=== PATIENT | female | born 1940 | race African-American/Black ===

== ENCOUNTER 2020-02-05 12:23 | Inpatient (IN) ==
[2020-02-05] MEDS ORDERED: NS 1,000 ML IV PRN (12:45)
[2020-02-05 13:08] LABS: BASO# 0.01 X1000 (0.0-0.2); BASO% 0.3 % (0.0-0.8); EOS# 0.09 X1000 (0.0-0.7); EOS% 2.5 % (0.0-10.0); HEMOGLOBIN 11.9 g/dL (12.0-16.0); LYMPH# 1.54 X1000 (1.2-3.4); MCH 30.4 PG (27-31); MCHC 31.3 g/dL (33-37); MCV 96.9 FL (81-99); MONO# 0.32 X1000 (0.11-0.59); MONO% 8.7 % (1.7-9.3); MPV 10.3 FL (7.4-10.4); NEUT# 1.71 X1000 (1.4-6.5); NEUT% 46.5 % (42.2-75.2); PLT 228 X1000 (130-400); RBC 3.92 XMIL (4.2-5.4); RDW 13.9 % (11.5-14.5); WBC 3.67 X1000 (4.8-10.8)
--- NOTE | 2020-02-05 13:09 | EKG Report ---
Test Performed on : 02/05/2020 12:34:25 PM Test Reason : stroke like symptoms Blood Pressure : / mmHG Vent. Rate : 072 BPM Atrial Rate : 072 BPM P-R Int : 198 ms QRS Dur : 086 ms QT Int : 406 ms P-R-T Axes : 049 -35 -01 degrees QTc Int : 444 ms Normal sinus rhythm. Left axis deviation Nonspecific T wave abnormality Abnormal ECG When compared with ECG of 07-JAN-2020 15:58, (Unconfirmed) Sinus rhythm. has replaced Atrial fibrillation. Nonspecific T wave abnormality, improved in Lateral leads Unconfirmed Result
[2020-02-05 13:24] LABS: INR 1.01; PROTIME 13.8 Seconds (11.0-16.0)
[2020-02-05 13:25] LABS: PTT 29.6 Seconds (22.3-41.8)
--- NOTE | 2020-02-05 13:36 | Diag Imaging Result Doc PS360 ---
EXAM: CT HEAD W/O CONTRAST INDICATION: CVA TECHNIQUE: This exam was performed using automated exposure control, adjustment of mA or kV according to patient size, and/or use of iterative reconstruction technique. COMPARISON: 09/13/2013 FINDINGS: There is mild diffuse brain atrophy, stable. There is no definite acute infarct given the limited sensitivity of CT versus MRI. There is no discrete intracranial mass, mass effect, or intracranial hemorrhage. The surrounding soft tissues and bony structures are essentially unremarkable. IMPRESSION: No evidence of acute intracranial pathology by CT. Electronically signed by Bill Baez 02/05/2020 1:34 PM
--- NOTE | 2020-02-05 13:38 | Diag Imaging Result Doc PS360 ---
CHEST-PORTABLE - 02/05/2020 INDICATION: irregular heart beats COMPARISON: 01/07/2020 FINDINGS: Stable faint chronic scarring in the lung bases. Heart size is top normal. Pulmonary vascularity is normal. No infiltrates. No pneumothorax or pleural effusion. IMPRESSION: No acute disease or change from prior. Electronically signed by Damián Pacheco 02/05/2020 1:35 PM
[2020-02-05 14:04] LABS: AGAP 12; ALBUMIN 3.4 g/dL (3.5-5.0); ALKALINE PHOSPHATASE 73 U/L (32-104); BUN 8 mg/dL (8-22); CALCIUM 8.8 mg/dL (8.8-10.2); CHLORIDE 105 mmol/L (98-107); COSMO 282; CREATININE 0.6 mg/dL (0.5-0.9); ESTIMATED GFR > 60; GLUCOSE 104 mg/dL (70-104); GOT 20 U/L (10-30); GPT 14 U/L (10-36); POTASSIUM 4.2 mmol/L (3.5-5.1); SODIUM 142 mmol/L (136-145); TCO2 25 mmol/L (25-35); TOTAL PROTEIN 6.9 g/dL (6.3-8.3)
[2020-02-05 14:17] LABS: URINE SOURCE CLEAN CATCH
[2020-02-05 14:20] LABS: BILIRUBIN URINE NEGATIVE (NEGATIVE); BLOOD URINE NEGATIVE (NEGATIVE); COLOR STRAW; GLUCOSE URINE NEGATIVE (NEGATIVE); KETONE URINE NEGATIVE (NEGATIVE); LEUKOCYTES URINE NEGATIVE (NEGATIVE); NITRITE URINE NEGATIVE (NEGATIVE); PROTEIN URINE NEGATIVE (NEGATIVE); SP GRAVITY URINE 1.011; TURBIDITY URINE CLEAR (CLEAR); UROBILINOGEN URINE NORMAL (NORMAL)
[2020-02-05 14:21] LABS: UR EPITHELIAL CELLS <10 /HPF (<10); URINE BACTERIA NEGATIVE /HPF; URINE RBC <10 /HPF (<10); URINE WBC <10 /HPF (<10)
[2020-02-05 14:37] LABS: UR AMPHETAMINES QUAL NONE DETECTED (NONE DETECT); UR BARBITUATES QUAL NONE DETECTED (NONE DETECT); UR BENZODIAZEPIN QUAL NONE DETECTED (NONE DETECT); UR CANNABINOIDS QUAL NONE DETECTED (NONE DETECT); UR COCAINE QUAL NONE DETECTED (NONE DETECT); UR METHADONE QUAL NONE DETECTED (NONE DETECT); UR METHAMPHETAMINE QUAL NONE DETECTED (NONE DETECT); UR OPIATES QUAL NONE DETECTED (NONE DETECT); UR OXYCODONE QUAL NONE DETECTED (NONE DETECT); UR PCP QUAL NONE DETECTED (NONE DETECT); UR PROPOXYPHENE QUAL NONE DETECTED (NONE DETECT); UR TCA QUAL NONE DETECTED (NONE DETECT)
--- NOTE | 2020-02-05 14:47 | PROVIDER DOCUMENTATION ---
This chart was entered by Cate Real Scribe, acting as scribe for Maira Barajas MD. HPI-Neurological Disorder - General Chief Complaint: Numbness Stated Complaint: LEFT ARM NUMBNESS Time Seen by Provider: 02/05/20 12:42 Source: patient Allergies/Adverse Reactions: Patient Allergies Allergy/AdvReac Type Severity Reaction Status Date / Time amoxicillin trihydrate * Allergy Mild SWELLING Verified 02/05/20 13:10 [From Amoxil] OF MOUTH iodine Allergy Mild RASH Verified 02/05/20 13:10 metronidazole [From Flagyl] Allergy Mild SWELLING Verified 02/05/20 13:10 Metronidazole HCl * Allergy Mild SWELLING Verified 02/05/20 13:10 [From Flagyl] Penicillins Allergy Mild RASH Verified 02/05/20 13:10 Sulfa (Sulfonamide Allergy Mild SWELLING Verified 02/05/20 13:10 Antibiotics) [Sulfa(Sulfonamide Antibiotics)] Home Medications: Home Medication List Medication Instructions Recorded Confirmed Last Taken Type Flecainide [Tambocor] 100 mg PO BID 08/16/12 02/05/20 09/24/19 History Gabapentin 100 mg PO BID 08/16/12 02/05/20 09/24/19 History Lovastatin 20 mg PO QHS 08/16/12 02/05/20 09/24/19 History Levothyroxine [Synthroid] 25 microgm PO DAILY 11/24/13 02/05/20 09/24/19 History Venlafaxine E.r. [Effexor Xr] 37.5 mg PO DAILY 06/23/16 02/05/20 09/24/19 History Diltiazem C.d. [Cardizem Cd] 120 mg PO BID #60 capsule 07/02/16 02/05/20 09/24/19 Rx Acetaminophen [Tylenol] 1 g PO Q8H PRN PRN #20 tab 09/25/19 02/05/20 Unknown Rx Apixaban [Eliquis] 5 mg PO DAILY 02/05/20 02/05/20 Unknown History Calcium Citrate/Vitamin D 1 ea PO DAILY 02/05/20 02/05/20 Unknown History [Citracal + D] - History of Present Illness-Neuro Nature of Presenting Problem: 79 yobf presents to the ed with c/o acute onset last night of LUE and LLE numbness and weakness. pt has no other sx. pt has no slurred speech, facial droop or unsteady gait. pt has hx of afib but denies CVA hx Onset/Duration: reports: last night Timing: reports: still present, intermittent Context: reports: paresthesia Approximate time patient was last seen normal?: 18:00 (last night) Character of Altered Mental Status: reports: N/A Any recent trauma/injury?: reports: none Character of Deficits: reports: new weakness, altered sensation. denies: vision problem/glaucoma, impaired speech, decreased ability to stand, decreased ability to walk New weakness or altered sensation location:: reports: LUE, LLE Cognitive Baseline: alert, oriented x3 Gait Baseline: walks without assistance Associated Symptoms: reports: paresthesia (numbness), weakness. denies: short of breath, fainting, confusion, chest pain, neck/back pain, slurred speech, vomiting, vision changes Similar Symptoms Previously?: No Recently seen or treated by another doctor?: No Review of Systems - Adult - REVIEW OF SYSTEMS - ADULT Constitutional: denies: fever Eyes: reports: no symptoms reported Ears, Nose, Mouth & Throat: reports: no symptoms reported Cardiovascular: denies: chest pain, orthopnea, palpitations Respiratory: denies: cough, shortness of breath, wheezing Gastrointestinal: denies: diarrhea, nausea, vomiting Genitourinary: reports: no symptoms reported Musculoskeletal: reports: other (minimal weakness LUE and LLE). denies: back pain, neck pain Integumentary: reports: no symptoms reported Neurological: reports: see HPI, numbness, paresthesia. denies: ataxia, dizziness/vertigo, headache/migraines, slurred speech, syncope Psychiatric: reports: no symptoms reported Endocrine: reports: no symptoms reported Hematologic/Lymphatic: reports: no symptoms reported Allergic/Immunologic: reports: no symptoms reported All Other Systems: Reviewed and Negative Past History - Adult - PAST MEDICAL HISTORY-ADULT Review of Records: reports: Old Records Reviewed, Nursing Assessment Review, Medications Reviewed, Social history reviewed & non-contributory. Major Childhood Illnesses: reports: denies history Cardiovascular: reports: cardiac disease, A-Fib, HTN Respiratory: reports: denies history Gastrointestinal: reports: cancer (colon), GERD Genitourinary: reports: denies history Musculoskeletal: reports: denies history Neurological: reports: denies history Endocrine/Immune: reports: thyroid disorder, Diabetes Diabetes Type: Type 2 Diabetes controlled by:: Diet Other Conditions: reports: denies history, other cancer Additional History: colon ca - PRIOR SURGERIES/PROCEDURES Surgical/Procedure History: reports: cholecystectomy, BTL, bowel surgery (colon) - IMMUNIZATION STATUS Childhood Immunizations: See Nurse Assessment Flu Vaccine: See Nurse Assessment - FAMILY HISTORY Family History: reviewed, not pertinent - SOCIAL HISTORY Smoking: denies Substance Use: denies Living Situation: family Physical Exam- Neurological - Physical Exam-Neuro Initial Vital Signs Reviewed: Yes General Appearance: appears well, alert, no apparent distress Eye Exam: bilateral eye: normal inspection, PERRL, EOMI HENMT: moist mucous membranes Head Injury: no evidence of injury Neck: non-tender, full range of motion, supple, normal inspection Respiratory: chest non-tender, lungs clear, normal breath sounds Cardiovascular: normal peripheral pulses, irregularly irregular Abdominal Exam: normal bowel sounds, non tender, soft Lymphatic: no adenopathy Extremity: normal range of motion, normal gait, normal inspection, normal capillary refill, other (LUE and LLE minimal weakness noted) operations planner Exam: normal hearing, normal speech, PERRL Coordination/Gait: normal finger to nose, normal gait Motor/Sensory: sensory deficit, weak motor strength LUE, weak motor strength LLE Integumentary: normal color, normal turgor, warm/dry Psych/Mental Status: normal mood/affect, normal thought content, normal thought process, oriented x 3 - Glascow Coma Scale Best Eye Response: (4) open spontaneously Best Verbal Response: (5) oriented Best Motor Response: (6) obeys commands Total Glascow Score: 15 Progress - PLAN OF CARE/RESULTS Progress/Plan/Lab Results: Vital Signs - 8 hr 02/05/20 12:26 02/05/20 14:39 02/05/20 15:44 Temperature 98 F Pulse Rate 78 59 L 61 Respiratory Rate 18 20 16 Blood Pressure 144/83 129/69 129/69 O2 Sat by Pulse Oximetry 96 98 99 Laboratory Results - last 24 hr 02/05/20 02/05/20 02/05/20 13:00 13:00 13:00 WBC 3.67 L RBC 3.92 L Hgb 11.9 L Hct 38.0 MCV 96.9 MCH 30.4 MCHC 31.3 L RDW Std Deviation 13.9 Plt Count 228 MPV 10.3 Immature Gran % (Auto) 0.0 Neut % (Auto) 46.5 Lymph % (Auto) 42.0 [place] % (Auto) 8.7 Eos % (Auto) 2.5 Baso % (Auto) 0.3 Immature Gran # (Auto) 0.00 Neut # (Auto) 1.71 Lymph # (Auto) 1.54 [place] # (Auto) 0.32 Eos # (Auto) 0.09 Baso # (Auto) 0.01 PT INR PTT (Actin FS) Sodium 142 Potassium 4.2 Chloride 105 Carbon Dioxide 25 Anion Gap 12 BUN 8 Creatinine 0.6 Estimated GFR/1.73 m2 > 60 BUN/Creatinine Ratio 13 Glucose 104 POC Glucose Calculated Osmolality 282 Calcium 8.8 Total Bilirubin 0.30 AST 20 ALT 14 Alkaline Phosphatase 73 Troponin T High Sens 11 Total Protein 6.9 Albumin 3.4 L Globulin 4.0 Albumin/Globulin Ratio 1.0 Urine Source Urine Color Urine Turbidity Urine pH Ur Specific [place] Urine Protein Ur Glucose (Stick) Ur Ketones (Stick) Urine Blood Urine Nitrite Urine Bilirubin Urobilinogen Dipstick Urine Leukocytes Urine WBC (Auto) Urine RBC (Auto) U Epithel Cells (Auto) Urine Bacteria (Auto) Urine Opiates Screen Ur Oxycodone Screen Urine Methadone Screen U Propoxyphene Qual Ur Barbituates Screen Ur Tricyclics Screen Ur Phencyclidine Scrn Ur Amphetamines Screen U Methamphetamines Scrn U Benzodiazepines Scrn Urine Cocaine Screen U Cannabinoids Screen 02/05/20 02/05/20 02/05/20 13:00 13:02 14:06 WBC RBC Hgb Hct MCV MCH MCHC RDW Std Deviation Plt Count MPV Immature Gran % (Auto) Neut % (Auto) Lymph % (Auto) [place] % (Auto) Eos % (Auto) Baso % (Auto) Immature Gran # (Auto) Neut # (Auto) Lymph # (Auto) [place] # (Auto) Eos # (Auto) Baso # (Auto) PT 13.8 INR 1.01 PTT (Actin FS) 29.6 Sodium Potassium Chloride Carbon Dioxide Anion Gap BUN Creatinine Estimated GFR/1.73 m2 BUN/Creatinine Ratio Glucose POC Glucose 115 H Calculated Osmolality Calcium Total Bilirubin AST ALT Alkaline Phosphatase Troponin T High Sens Total Protein Albumin Globulin Albumin/Globulin Ratio Urine Source Urine Color Urine Turbidity Urine pH Ur Specific [place] Urine Protein Ur Glucose (Stick) Ur Ketones (Stick) Urine Blood Urine Nitrite Urine Bilirubin Urobilinogen Dipstick Urine Leukocytes Urine WBC (Auto) Urine RBC (Auto) U Epithel Cells (Auto) Urine Bacteria (Auto) Urine Opiates Screen NONE DETECTED Ur Oxycodone Screen NONE DETECTED Urine Methadone Screen NONE DETECTED U Propoxyphene Qual NONE DETECTED Ur Barbituates Screen NONE DETECTED Ur Tricyclics Screen NONE DETECTED Ur Phencyclidine Scrn NONE DETECTED Ur Amphetamines Screen NONE DETECTED U Methamphetamines Scrn NONE DETECTED U Benzodiazepines Scrn NONE DETECTED Urine Cocaine Screen NONE DETECTED U Cannabinoids Screen NONE DETECTED 02/05/20 14:06 WBC RBC Hgb Hct MCV MCH MCHC RDW Std Deviation Plt Count MPV Immature Gran % (Auto) Neut % (Auto) Lymph % (Auto) [place] % (Auto) Eos % (Auto) Baso % (Auto) Immature Gran # (Auto) Neut # (Auto) Lymph # (Auto) [place] # (Auto) Eos # (Auto) Baso # (Auto) PT INR PTT (Actin FS) Sodium Potassium Chloride Carbon Dioxide Anion Gap BUN Creatinine Estimated GFR/1.73 m2 BUN/Creatinine Ratio Glucose POC Glucose Calculated Osmolality Calcium Total Bilirubin AST ALT Alkaline Phosphatase Troponin T High Sens Total Protein Albumin Globulin Albumin/Globulin Ratio Urine Source CLEAN CATCH Urine Color STRAW Urine Turbidity CLEAR Urine pH 7.0 Ur Specific [place] 1.011 Urine Protein NEGATIVE Ur Glucose (Stick) NEGATIVE Ur Ketones (Stick) NEGATIVE Urine Blood NEGATIVE Urine Nitrite NEGATIVE Urine Bilirubin NEGATIVE Urobilinogen Dipstick NORMAL Urine Leukocytes NEGATIVE Urine WBC (Auto) <10 Urine RBC (Auto) <10 U Epithel Cells (Auto) <10 Urine Bacteria (Auto) NEGATIVE Urine Opiates Screen Ur Oxycodone Screen Urine Methadone Screen U Propoxyphene Qual Ur Barbituates Screen Ur Tricyclics Screen Ur Phencyclidine Scrn Ur Amphetamines Screen U Methamphetamines Scrn U Benzodiazepines Scrn Urine Cocaine Screen U Cannabinoids Screen Orders Category Date Time Status Cardiac Monitoring DIRECTED Care 02/05/20 12:47 Active Finger Stick Blood Sugar (ED) DIRECTED Care 02/05/20 12:47 Active Misc. NRSG Communication Order DIRECTED Care 02/05/20 12:47 Active Saline Loc NOW Care 02/05/20 12:47 Active CHEST-PORTABLE [RAD] Stat Exams 02/05/20 13:[address] HEAD W/O CONTRAST [CT] Stat Exams 02/05/20 12:47 Completed MRA BRAIN W/O CONTRAST [MRI] Stat Exams 02/05/20 16:15 Ordered MRI BRAIN W/WO CONTRAST [MRI] Stat Exams 02/05/20 16:15 Ordered CBC WITH ELECTRONIC DIFF [HEME] Stat Lab 02/05/20 13:00 Completed COMPREHENSIVE METABOLIC PANEL [CHEM] Stat Lab 02/05/20 13:00 Completed PROTIME WITH INR [COAG] Stat Lab 02/05/20 13:00 Completed PTT [COAG] Stat Lab 02/05/20 13:00 Completed TROPONIN T HIGH SENSITIVITY Stat Lab 02/05/20 13:00 Completed URINALYSIS W/POSS RFLX CULT [URINALYSIS] Stat Lab 02/05/20 14:06 Completed URINE DRUG SCREEN PL Stat Lab 02/05/20 14:06 Completed 0.9% Sodium Chloride Inj [Ns] 1,000 ml Med 02/05/20 12:45 Active IV 250 mls/hr EKG [EKG] Stat Ther 02/05/20 12:47 Draft Echo Spec/Color Doppler Routine Ther 02/05/20 16:15 Ordered Transfer/Admit Order [TRANSFER] Routine Transfer 02/05/20 16:19 Ordered Result Diagrams: 02/05/20 13:00 02/05/20 13:00 - REASSESSMENT Reassessment #1 Time Reassessed: 14:09 Status: improving (pt is resting in bed) - EKG 1 Time of EKG reading by physician:: 12:34 EKG Read and Signed by:: Maira Barajas EKG Interpretation (*Must complete 3 of following elements*): Abnormal Rate: 72 Rhythm: nsr [place]: left (deviation) QRS: normal MI Interval: normal ST Wave: normal Comments: nonspecific T wave abnormality - XRAY 1 XRAY: Bilateral XRAY Study: Chest Impression: See EMR Report (IMPRESSION: No acute disease or change from prior. Electronically signed by Damián Pacheco 02/05/2020 1:35 PM) - CT/MRI 1 CT Study: Head Impression: See EMR Report (IMPRESSION: No evidence of acute intracranial pathology by CT. Electronically signed by Bill Baez 02/05/2020 1:34 PM) - CONSULTS/PCP/HOSPITALIST Notification #1 *Consult/PCP/Hospitalist*: hospitalist dr park Time Discussed: 14:49 Consult Disposition: Will see in ED, Admit Departure - Departure Date of Disposition Decision: 02/05/20 Time of Disposition Decision: 14:45 DIAGNOSIS: Left-sided weakness Disposition: ADMITTED INPATIENT 09 Certified Medical Emergency: Emergent Condition: Good Referrals and Follow-Ups: Freddy Ramirez MD [Primary Care Provider] - - Critical Care Note This patient required my direct & personal management of CC.: No Attestation - Physician/ CASTILLO Attestation Patient care was provided by Advanced Practice Provider:: No The physician spent face to face time with patient:: Yes Advanced Practice Provider documentation review:: Supervising physician onsite a nd consulted in the evaluation and care of this patient. The physician did have a face to face encounter with the patient. - NIH Stroke Scale NIH Type: Initial Evaluation Level of Consciousness: 0-Alert LOC Questions (ask month and age): 0-Answers Both Correctly LOC Commands (ask to open & close eyes;make a fist, let go): 0-Obeys Both Correctly Best Gaze (horizontal eye movement): 0-Normal Visual (use finger movement, counting or visual threat): 0-No Visual Loss Facial Palsy (show teeth or raise eyebrows & close eyes tght: 0-Symmetrical Movement Motor Function-left arm: 1-Drift Motor Function-right arm: 0-Normal Motor Function-left le-Drift Motor Function-right le-Normal Limb Ataxia([id number], or heel to leonardo): 0-No Ataxia Sensory(pin prick to face,arms,trunk,legs-compare side/side): 1-Mild to Moderate Decrease in Sensation Best Language(name item/read sentence.Ex-Down to Earth): 0-No Aphasia Dysarthria(Pt read words or say words Ex.Mama,Tip-Top,Thanks: 0-Normal Articulation NIH Total Score: 3 This chart was documented by the indicated scribe, (Cate Real Scribe) and accurately reflects the services I performed and decisions made by me, Maira Barajas MD, as attested by the provider's signature.
[2020-02-05] MEDS ORDERED: ZOFRAN IV PRN (17:18)
[2020-02-05] MEDS ORDERED: TYLENOL PO PRN (17:18)
--- NOTE | 2020-02-05 19:05 | HISTORY AND PHYSICAL ---
PRIMARY CARE PROVIDER: Dr. Marizol Marino is her PCP. BUSINESS PERFORMANCE ADVISOR: Dr. Ramirez. CHIEF COMPLAINT: Left upper extremity tingling, weakness, and aching pain and left lower extremity 2 toes that are numb. HISTORY OF PRESENT ILLNESS: Miss Kelly is an 79-year-old female who carries a past medical history of some type of tachyarrhythmia (she is on flecainide and Eliquis), hypothyroidism, diabetes mellitus type 2 (however, she has been taken off all her diabetes medicine), small bowel obstruction, colon cancer, coronary artery disease, hypertension, hyperlipidemia, and GERD who reports that last night she started experiencing some left upper extremity tingling, weakness, and aching pain that felt like it was deep in her muscle that radiated to her forearm as well as left lower extremity 2-toe numbness. She has been doing her own physical therapy with her arm and reports that her strength is better. We did witness her fruit picker her heavy purse off the floor without any issue. Her weakness has resolved. She does have some residual aching pain, but no more weakness. Her toe pain is almost gone as well. She reports she was started on a new medication recently with Eliquis. She was placed in observation status to rule out CVA. However, I believe it may be more nerve related. We will continue with a full neurological workup. PAST MEDICAL HISTORY: Per HPI. PAST SURGICAL HISTORY: 1. Colon resection. 2. Exploratory laparotomy with lysis of adhesion. 3. Tubal ligation. 4. Cholecystectomy. 5. Thyroid lobectomy. ALLERGIES: Amoxil causes swelling of the mouth. Iodine causes a rash. Flagyl causes mild swelling. Penicillin causes a mild rash. Sulfa causes mild swelling. MEDICATIONS: Home medications are being compiled. We do know for a fact that she is on flecainide and new medication, Eliquis. SOCIAL HISTORY: He lives at home with family. Denies tobacco, alcohol, or illicit drug use. Remote history of smoking years ago. REVIEW OF SYSTEMS: Twelve-point review of systems completely negative except for those mentioned in HPI. She denies any headache, fever, chills, cough, shortness of breath, any recent travel, or being around any sick contacts. She has had no slurred speech. No facial drooping. PHYSICAL EXAMINATION: VITAL SIGNS: Temperature is 98.3 degrees, heart rate 66, respirations 18, blood pressure is 159/76, and O2 is 96% on room air. GENERAL: Miss Kelly is a pleasant, 79-year-old, female who is lying flat in the bed in no acute distress. HEENT: Atraumatic, normocephalic. PERRL. NECK: Supple. Trachea midline. CARDIOVASCULAR: S1, S2 appreciated. No murmurs, gallops, or rubs noted. RESPIRATORY: Lung sounds clear bilaterally. GASTROINTESTINAL: Soft, nontender, nondistended. Positive bowel sounds x4 quadrants. LOWER EXTREMITIES: Negative for edema. NEUROLOGIC: She is awake. She is alert. She is oriented. She moves all extremities appropriately. Did not notice any focal deficits. DIAGNOSTIC DATA: Head CT: No evidence of acute intracranial pathology. Chest x-ray: No acute disease. LABORATORY DATA: White count 30, hemoglobin and hematocrit 11 and 38, platelet count is 228,000. Sodium 142, potassium 4.2, BUN 8, creatinine 0.8. Blood glucose is 104. Urinalysis is negative. Drug screen is negative. ASSESSMENT AND PLAN: 1. Left upper extremity weakness, tingling, and aching pain. It has essentially resolved except for some residual aching pain in her biceps. She has been doing her own physical therapy and feels like the weakness is gone. She also reported 2 toes on her lower extremity that went numb that has also resolved as well. We will do a cerebrovascular accident rule out. Place her on a healthy heart diet. 2. Reported tachyarrhythmia on flecainide and Eliquis. We will resume when reconciled. 3. Hypothyroidism. We will continue Synthroid. 4. Diabetes mellitus type 2, currently diet controlled. 5. History of small bowel obstructions. No issues. 6. Coronary artery disease. No chest pain. 7. Hypertension, stable. Further recommendation to follow physician evaluation, laboratory, and diagnostic data. Dictated by STEPAN Paris for George Donovan MD cc: George Donovan MD
--- NOTE | 2020-02-05 23:39 | HISTORY AND PHYSICAL ---
ADDENDUM: The patient presented to the hospital with left arm numbness. Initially in the ER this was felt to secondary to a stroke. She thankfully notes left arm tingling actually worsens when she closes her arm, and she is having pain when she moves her arm. She also notes that 2 digits on her foot She ekta have a history of atrial fibrillation, recently started on Xarelto. We are going to watch her overnight and make sure this does not change. Hopefully she can discharge home tomorrow if workup remains negative. cc: George Donovan MD MTDD
[2020-02-06 06:24] LABS: AGAP 12; ALBUMIN 3.5 g/dL (3.5-5.0); ALKALINE PHOSPHATASE 77 U/L (32-104); BUN 10 mg/dL (8-22); CALCIUM 8.9 mg/dL (8.8-10.2); CHLORIDE 102 mmol/L (98-107); COSMO 275; CREATININE 0.6 mg/dL (0.5-0.9); ESTIMATED GFR > 60; GLUCOSE 98 mg/dL (70-104); GOT 21 U/L (10-30); GPT 14 U/L (10-36); SODIUM 138 mmol/L (136-145); TCO2 24 mmol/L (25-35); TOTAL PROTEIN 7.1 g/dL (6.3-8.3)
[2020-02-06 07:08] LABS: BASO# 0.01 X1000 (0.0-0.2); BASO% 0.3 % (0.0-0.8); EOS# 0.09 X1000 (0.0-0.7); EOS% 2.4 % (0.0-10.0); HEMATOCRIT 38.8 % (37.0-47.0); IMM GRAN# 0.01 X1000 (0.0-0.04); IMM GRAN% 0.3 % (0.0-0.5); LYMPH# 1.76 X1000 (1.2-3.4); LYMPH% 46.1 % (20.5-51.1); MCH 30.1 PG (27-31); MCHC 30.9 g/dL (33-37); MCV 97.2 FL (81-99); MONO# 0.32 X1000 (0.11-0.59); MONO% 8.4 % (1.7-9.3); MPV 10.9 FL (7.4-10.4); NEUT# 1.63 X1000 (1.4-6.5); NEUT% 42.5 % (42.2-75.2); PLT 211 X1000 (130-400); RBC 3.99 XMIL (4.2-5.4); RDW 13.8 % (11.5-14.5); WBC 3.82 X1000 (4.8-10.8)
--- NOTE | 2020-02-06 09:28 | Diag Imaging Result Doc PS360 ---
EXAM: MRA BRAIN W/O CONTRAST HISTORY: cva TECHNIQUE: 3-D [id number] images were obtained of the [place] without contrast. COMPARISON: None. FINDINGS: narrowed versus hypoplastic A1 and A2 segments of the left anterior cerebral artery. The anterior communicating artery and posterior communicating arteries are patent bilaterally. Bilateral intracranial ICAs, MCAs, distal vertebral arteries and basilar artery are patent. P1 and P2 segments of the workforce planning analyst are patent. No abrupt vascular cut off. More distal branches of the bilateral posterior cerebral arteries are poorly visualized. No aneurysm is appreciated. IMPRESSION: 1.No vascular occlusion. 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 3.Poorly visualized distal branches of bilateral workforce planning analyst are noted. This may be related to atherosclerotic disease or technical factors. Electronically signed by Carmelina Dodd 02/06/2020 9:26 AM
--- NOTE | 2020-02-06 09:54 | Diag Imaging Result Doc PS360 ---
EXAM: MRI BRAIN W/WO CONTRAST HISTORY: cva TECHNIQUE: Multisequence multiplanar images with and without contrast as per standard protocol. COMPARISON: None. FINDINGS: There are no extra-axial collections. There is mild cerebral atrophy. There are scattered deep white matter T2 hyperintensities nonspecific in appearance but likely related to microvascular disease. Diffusion images show no evidence for acute infarct. Susceptibility images show no evidence for hemorrhage. There are no abnormal regions of contrast enhancement. IMPRESSION: Atrophy and microvascular disease. No acute intracranial abnormality. Electronically signed by Carmelina Dodd 02/06/2020 9:52 AM
[2020-02-06] MEDS ORDERED: CARDIZEM CD PO PRN (11:30)
[2020-02-06] MEDS ORDERED: TYLENOL PO PRN (11:30)
[2020-02-06 16:21] VITALS: BP 153/67
--- NOTE | 2020-02-06 19:14 | Vascular Study Report ---
EXAM: Carotid Ultrasound INDICATION: cva TECHNIQUE: COMPARISON: None. FINDINGS: Right: There is no significant atherosclerotic disease involving the right carotid system on grayscale images. The peak systolic velocity measures 110, 93, 43, 55, 40, 57, and 46 cm/s at the right subclavian artery, CCA, bifurcation, proximal ICA, mid ICA, distal ICA, and ECA, respectively. There is antegrade flow in the vertebral artery. The carotid ratio is 0.61. Left: There is no significant atherosclerotic disease involving the left carotid system on grayscale images. The peak systolic velocity measures 104, 79, 53, 37, 25, 46, and 91 cm/s at the left subclavian artery, CCA, bifurcation, proximal ICA, mid ICA, distal ICA, and ECA, respectively. The carotid ratio is 0.58. IMPRESSION: No evidence of hemodynamically significant carotid stenosis by Doppler. Electronically signed by Bill Baez 02/06/2020 7:11 PM
--- NOTE | 2020-02-06 19:47 | DISCHARGE SUMMARY ---
ADMISSION DATE: 02/05/2020 DISCHARGE DATE: 02/06/2020 PRIMARY CARE PROVIDER: Roxy Valentin MD. CUT OFF SAW OPERATOR METAL: Dr. Ramirez. CHIEF COMPLAINT: 1. Left upper extremity weakness, tingling and aching, as well as 2 left toes that were numb. All issues had been resolved. The patient has been doing her own physical therapy. The weakness was gone. The numbness has almost subsided, as well as in her 2 toes. I will have her follow up with her PCP. 2. CVA ruled out, imaging does not show anything acute. Carotid showed 0-35% stenosis. Reported tachycardia arrhythmia, on flecainide and Eliquis. 3. Hypothyroidism. Continue Synthroid. 4. Diabetes mellitus type 2, diet controlled. 5. History of small bowel obstruction. No issues. 6. Coronary artery disease. No chest pain. 7. Hypertension, stable. DIAGNOSTIC DATA: Head CT, no evidence of acute intracranial pathology. Brain MRA, no occlusion. Narrowing versus hypoplastic left anterior cerebral artery, poorly visualized distal branches of bilateral administrative project coordinator are noted, may be related to atherosclerotic disease or technical factors. Brain MRI, atrophy and microvascular disease, no acute intracranial abnormality. Again, carotids full report has not been read but it was called 0-39% stenosis. Echo has been done and currently still pending. Can follow up with her PCP. HOSPITAL COURSE: Briefly, Ms. Kelly is an 79-year-old, -[place] female who carries a past medical history of tachyarrhythmia--she is on flecainide and Eliquis, hypothyroidism, diabetes mellitus type 2--has been is diet controlled, small bowel obstruction, colon cancer, coronary artery disease, hypertension, hyperlipidemia and GERD, who reported she started experiencing some left upper extremely tingling, weakness and aching in her biceps that felt like a deep muscle ache that would radiate to her forearm. As well as left lower extremity to toe numbness. All had but subsided upon admission. She was able to lift her heavy purse up off the floor with her left hand with no issues. There was only a residual ache but no more excruciating pain. She was ruled out for CVA and will be discharged back home today. VITAL SIGNS: Temperature is 98.7 degrees, heart rate 76, respirations 18, blood pressure 153/67, O2 is 100% on room air. DISCHARGE DIET: Healthy heart. DISCHARGE MEDICATIONS: 1. Lovastatin 20 mg p.o. at bedtime. 2. Cardizem CD 120 mg p.o. b.i.d. 3. Calcium citrate and vitamin D 1 each p.o. daily. 4. Effexor XR 37.5 mg p.o. daily. 5. Eliquis 5 mg p.o. b.i.d. 6. Gabapentin 100 mg p.o. b.i.d. 7. Synthroid 25 mcg p.o. daily. 8. Flecainide 50 mg p.o. b.i.d. 9. Tylenol 500 mg p.o. every 8 hours p.r.n. FOLLOWUP: Ms. Kelly is being discharged back home with self care. She is to follow up with her primary care provider, Dr. Marizol Marino. She can return to the ED or call 911 for any worsening of symptoms. Dictated by STEPAN Paris for George Donovan MD cc: George Donovan MD
--- NOTE | 2020-02-06 19:49 | DISCHARGE SUMMARY ---
ADMISSION DATE: 02/05/2020 DISCHARGE DATE: 02/06/2020 Patient was admitted to the hospital with pain and numbness and tingling in her left arm. After further evaluation, it appears though this worsened with movement. Currently it is better. Certainly, appears to be more musculoskeletal related. Her stroke workup is negative thus far and, therefore, we will discharge her home. Please see full note. cc: George Donovan MD
[2020-02-06] MEDS ORDERED: NEURONTIN PO SCH (21:00)
[2020-02-06] MEDS ORDERED: MEVACOR PO SCH (21:00)
[2020-02-06] MEDS ORDERED: TAMBOCOR PO SCH (21:00)
[2020-02-06] MEDS ORDERED: ELIQUIS PO SCH (21:00)
[2020-02-07] MEDS ORDERED: SYNTHROID PO SCH (07:00)
--- NOTE | 2020-02-07 08:43 | ECHO REPORT ---
ORDER DATE: 02/05/2020 MEASUREMENTS: Septal thickness 1.3, left ventricular internal diameter in diastole 3.4, posterior wall thickness 1.2, left ventricular internal diameter in systole 2.0, aortic root 2.9, left atrium 3.8. SUMMARY: 1. Technically difficult study due to limited acoustic window quality. 2. Aortic valve is trileaflet. There is moderate aortic valve sclerosis, particularly of noncoronary cusp, with mild to moderate reduction in mobility of left coronary cusp. Aortic valve opening appears to be adequate. The peak gradient across the aortic valve is 14 mmHg with a mean gradient of 7.6 mmHg. There is mild aortic regurgitation. Mild mitral annular calcification is demonstrated. There is very mild mitral regurgitation. Tricuspid and pulmonic valves are without evidence of structural abnormality with mild tricuspid regurgitation and mild pulmonic insufficiency. The estimated systolic PA pressure by Doppler is 35 mmHg. The aortic root is normal in size. There is mild dilatation of the proximal ascending aorta. 3. Normal left ventricular chamber size with mild concentric left ventricular hypertrophy demonstrated. The estimated left ventricular ejection fraction appears to be at least 70%. No focal wall motion abnormality can be appreciated. Doppler suggests grade 1 left ventricular diastolic dysfunction. The left atrium is mildly enlarged on 2-dimensional images. The right atrium and right ventricle are normal in size with grossly preserved right ventricular systolic function. 4. No pericardial effusion. 5. Appearance of inferior vena cava suggests normal central venous pressure. CONCLUSIONS: 1. Technically difficult study. 2. Aortic valve sclerosis without stenosis with mild aortic regurgitation. 3. Mild mitral annular calcification with very mild mitral regurgitation. 4. Mild tricuspid regurgitation with an estimated systolic PA pressure of 35 mmHg. 5. Mild concentric left ventricular hypertrophy with somewhat hyperdynamic left ventricle and estimated left ventricular ejection fraction greater than 70%. 6. Grade 1 left ventricular diastolic dysfunction. 7. Mild left atrial enlargement suggested. cc: Tito Pollock MD
[2020-02-07] MEDS ORDERED: EFFEXOR XR PO SCH (09:00)
== END 2020-02-06 18:31 | disposition home or self-care (01) | DRG 948 ==
LOC: P.ED 12:23 → P.MEDSURG 17:09
PROVIDERS: ATTEND Family Medicine